=== PATIENT | male | born 1995 | race Caucasian/White ===

== ENCOUNTER 2019-05-23 11:40 | Emergency (ER) | payer SELFPAY ==
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
[2019-05-23 12:09] VITALS: BP 131/82; PULSE 72; O2SAT 96
== END 2019-05-23 12:18 | disposition home or self-care (01) ==
LOC: ED 11:40
DX: S61.431A Puncture wound without foreign body of right hand, initial encounter (principal); W22.8XXA Striking against or struck by other objects, initial encounter
CPT/HCPCS: 99283

== ENCOUNTER 2020-08-12 01:13 | Emergency (ER) | payer SELFPAY ==
[2020-08-12] MEDS ORDERED: Zemuron 100 MG/10 ML IV ONE (01:14)
[2020-08-12] MEDS ORDERED: VERSED 5 MG/5 ML IV ONE (01:14)
[2020-08-12] MEDS ORDERED: DIPRIVAN 200 MG/20 ML IV ONE (01:14)
[2020-08-12] MEDS ORDERED: Amidate 20 MG/10 ML IV ONE (01:14)
[2020-08-12] MEDS ORDERED: Sodium Chloride 0.9% 100 ML IVPB 100 ML IV ONE (01:14)
[2020-08-12] MEDS ORDERED: Sodium Chloride 0.9% 1000 ML 1,000 ML ONE ×3 (01:20→01:55)
[2020-08-12] MEDS ORDERED: Sodium Chloride 0.9% 500 ML 500 ML IV ONE (01:25)
[2020-08-12] MEDS ORDERED: Versed 50 MG/ 10 Ml MDV ONE (01:31)
[2020-08-12] MEDS ORDERED: Sodium Chloride 0.9% 250 ML 250 ML IV ONE (01:31)
[2020-08-12 01:39] LABS: Appearance CLEAR (CLEAR); Bilirubin NEGATIVE (NEGATIVE); Blood SMALL Ery/ul (0-5); Glucose NEGATIVE (NEGATIVE); Ketones NEGATIVE (NEGATIVE); Leukocyte Esterase NEGATIVE (NEGATIVE); Nitrite NEGATIVE (NEGATIVE); Protein,Urine Dip NEGATIVE (Negative); Specific Gravity 1.001 (1.005-1.025); Urobilinogen NEGATIVE mg/dL (0-1)
[2020-08-12 01:40] LABS: INR 1.1 (0.8-3.0); PROTIME 12.4 SECONDS (8.83-12.87)
[2020-08-12 01:44] LABS: ALBUMIN 4.8 g/dL (3.5-5.0); ALKALINE PHOSPHATASE 80 U/L (38-126); ANION GAP 15.6 MEQ/L (5-15); BLOOD UREA NITROGEN 8 mg/dL (9-20); CHLORIDE 105 mmol/L (98-107); Calcium 9.1 mg/dL (8.4-10.2); Carbon Dioxide 19 mmol/L (22-30); Creatinine 1 0.96 mg/dL (0.66-1.25); EST GLOMERULAR FILTRATION RATE > 60.0 ML/MIN; ETHYL ALCOHOL 184 mg/dL (0-10); Glucose 117 mg/dL (74-106); Potassium 3.3 mmol/L (3.5-5.1); SGOT/AST 28 U/L (17-59); SGPT/ALT 22 U/L (0-50); SODIUM 136 mmol/L (137-145); Total Protein 7.8 g/dL (6.3-8.2)
[2020-08-12 01:52] LABS: Amphetamine,Urine NEGATIVE (NEGATIVE); Barbiturate,Urine NEGATIVE (NEGATIVE); Benzodiazepine,Urine NEGATIVE (NEGATIVE); Cocaine,Urine NEGATIVE (NEGATIVE); Methadone,Urine NEGATIVE (NEGATIVE); Opiate,Urine NEGATIVE (NEGATIVE); PCP,Urine NEGATIVE (NEGATIVE); THC,Urine NEGATIVE (NEGATIVE)
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
[2020-08-12 02:07] LABS: Absolute Neutrophil Ct (ANC) 7.06 (1.4-6.9); BASOPHIL % 0.3 % (0.0-0.4); Basophil (Absolute #) 0.03 (0-0.4); Eosinophil % 2.2 % (0.00-5.0); Eosinophil (Absolute #) 0.24 (0-0.5); Hematocrit 40.5 % (42-50); Hemoglobin 13.8 gm/dl (12.5-18.0); Lymphocyte (Absolute #) 2.81 (1.0-4.6); Lymphocytes % 25.7 % (24.0-44.0); Mean Cell Volume 93.1 fl (78-100); Mean Corpuscular Hemoglobin 31.7 pg (26-32); Mean Corpuscular Hgb Concent. 34.1 g/dl (32-36); Monocyte (Absolute #) 0.78 (0.0-1.3); Monocytes % 7.1 % (0.0-12.0); Neutrophil % 64.7 % (36.0-66.0); Platelet Count 231 K/mm3 (150-450); Red Blood Count 4.35 M/mm3 (4.1-5.6); Red Cell Distribution Width 13.4 % (11.5-14.0); White Blood Count 10.9 K/mm3 (4.0-10.5)
[2020-08-12 02:13] LABS: ABO TYPING A; Antibody Screen NEGATIVE (NEGATIVE); RH TYPING POSITIVE
[2020-08-12 02:36] LABS: A-aADO2 135; ABG HEMOGLOBIN 14.8; ARTERIAL BLD GAS O2 SATURATION 98.9 % (95-100); ARTERIAL BLD GAS TIDAL VOLUME 600 cc; ARTERIAL BLOOD GAS BASE EXCESS -5.2 (-2.0-2.0); ARTERIAL BLOOD GAS FIO2 50 %; ARTERIAL BLOOD GAS PCO2 46 mmHg (35-45); ARTERIAL BLOOD GAS PO2 164 mmHg (75-100); ARTERIAL BLOOD GAS VENT MODE A/C; ARTERIAL BLOOD GAS pH 7.28 (7.35-7.45); CARBOXYHEMOGLOBIN 4.3 % THgb (0.0-6.9); HCO3- 21.6 (22-28); HGB O2 SAT 93.8 g/dF (94-100); Lactic Acid 2.4 (0.4-2.0); Methhemoglobin 0.9 % (1.4-1.5); paO2 pAO1 0.55
[2020-08-12 02:37] LABS: ABG SITE LEFT BRACHIAL
[2020-08-12] MEDS ORDERED: Zosyn 3.375 GM Vial IV ONE (02:50)
[2020-08-12] MEDS ORDERED: Sodium Chloride 100ML MINI-BAG PLUS 100 ML IV ONE (02:50)
[2020-08-12] MEDS: Zosyn 3.375 GM Vial 3.375 GM in Sodium Chloride 100ML MINI-BAG PLUS 100 ML IV ONE (02:51)
[2020-08-12 04:10] VITALS: BP 147/99; PULSE 125; O2SAT 99
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
--- NOTE | 2020-08-12 08:51 | XRAY ---
Indication: NG tube placement. Comparison: Taken earlier in the day. Portable chest demonstrates NG tube now traversing the chest with tip presumed in the stomach. Remaining heart, lungs, and bony thorax again normal with endotracheal tube in good position.
== END 2020-08-12 03:47 | disposition short-term general hospital (02) ==
LOC: ED 01:13
DX: S31.644A Puncture wound with foreign body of abdominal wall, left lower quadrant with penetration into peritoneal cavity, initial encounter (principal); F10.129 Alcohol abuse with intoxication, unspecified
CPT/HCPCS: 31500; 36415; 36600; 71045; 80053; 80307; 81001; 82375; 82803; 83605; 85025; 85610; 86850; 86900; 86901; 94002; 94799; 96365; 96367; 99285; 99291; J2250; J2704; G0480